=== PATIENT | male | born 1970 | race Caucasian/White ===

== ENCOUNTER → 2018-09-09 | Outpatient (CLI) | payer BC ==
--- NOTE | 2018-09-09 18:34 | MR ---
EXAMINATION TYPE: MR angio head wo con DATE OF EXAM: 09/09/2018 COMPARISON: NONE HISTORY: Family hx aneurysm TECHNIQUE: Time of flight images focusing on the [place] were performed without contrast.. 2-D and 3-D postprocessing imaging is performed on MRI scanner. FINDINGS: There is dominant right vertebral artery. Vertebral arteries are patent to basilar junction . There is no significant focal stenosis or aneurysmal change in the posterior circulation. There are patent posterior communicating arteries identified bilaterally. Images of the anterior circulation show patent anterior communicating artery axial image 112 series 2 01. There is no significant focal stenosis or aneurysmal change in the anterior circulation. IMPRESSION: No aneurysmal change at level of [place].
== END | disposition home or self-care (01) ==
LOC: RADMRIMAIN 17:48
PROVIDERS: ATTEND Internal Medicine
DX: Z13.858 Encounter for screening for other nervous system disorders (principal); Z82.49 Family history of ischemic heart disease and other diseases of the circulatory system
CPT/HCPCS: 70544

== ENCOUNTER → 2020-03-31 | Outpatient (CLI) | payer BC, OTHER | END | disposition home or self-care (01) | LOC: LABWHC1 12:42 | PROVIDERS: ATTEND Internal Medicine | DX: R52 Pain, unspecified (principal); Z20.828 Contact with and (suspected) exposure to other viral communicable diseases | CPT/HCPCS: U0003; C9803 ==

== ENCOUNTER → 2023-07-07 | Outpatient (CLI) | payer BC ==
[2023-07-07 13:48] LABS: ALT 38 U/L (10-49); AST 23 U/L (14-35); Albumin 4.5 g/dL (3.8-4.9); Alkaline Phosphatase 81 U/L (41-126); Blood Urea Nitrogen 10.5 mg/dL (9.0-27.0); Calcium 9.9 mg/dL (8.7-10.3); Carbon Dioxide 25.3 mmol/L (21.6-31.8); Chloride 101 mmol/L (96-109); Chol/HDL Ratio 3.94 Ratio; Globulin 2.5 g/dL (1.6-3.3); Glucose 93 mg/dL (70-110); LDL Cholesterol,Calculated 119.8 mg/dL (0.0-131.0); Potassium 4.4 mmol/L (3.5-5.5); Sodium 137 mmol/L (135-145); Total Bilirubin 0.7 mg/dL (0.3-1.2)
[2023-07-07 14:23] LABS: Basophils # (M) 0 X 10*3/uL (0.00-0.10); HCT 44.8 % (39.6-50.0); HGB 15.4 g/dL (13.0-17.0); Lymphocytes # (M) 27.13 X 10*3/uL (0.90-5.00); MCH 30.4 pg (27.0-32.0); MCHC 34.4 g/dL (32.0-37.0); MCV 88.5 FL (80.0-97.0); Mean Platelet Volume 9.6 FL (9.5-12.2); NRBC Per 100 WBC 0 X 10*3/uL (0.00-0.01); Neutrophils # (M) 2.74 X 10*3/uL (1.80-7.70); Neutrophils % (M) 9 %; Platelet Count 192 X 10*3/uL (140-440); RBC 5.06 X 10*6/uL (4.40-5.60); RDW 12.2 % (11.5-14.5); WBC 30.48 X 10*3/uL (4.50-10.00)
== END | disposition home or self-care (01) ==
LOC: LABWHC1 09:06
PROVIDERS: ATTEND Internal Medicine
DX: I10 Essential (primary) hypertension (principal); E78.00 Pure hypercholesterolemia, unspecified
CPT/HCPCS: 36415; 80053; 80061; 85025